=== PATIENT | male | born 1950 | race Caucasian/White ===

== ENCOUNTER 2023-03-28 14:21 | Emergency (ER) | payer OTHER ==
[~2023-03-28] VITALS: Ht 190.5 cm; Wt 103.4 kg
[~2023-03-28 14:21] MED LIST: ALBU90OI INH; ALBU90OI6 INH; ALBU90OI61 INH; ALLO300 PO; AMLO5 PO; AMOCLA875 PO; ASPI81CH PO; ATOR40TA PO; BENICAR; CARV6.25 PO; CHOL10002; COMBIVENT RESPIM4 GM; DICL75ER; DIPH50 PO; DOC250 PO; DUTASTERIDE0.5 MG PO; FENO160; FENO160 PO; FISH1000 PO; FURO40 PO; GABA400 PO; GLIM4; HYDACE10B; HYDACE5 PO; HYDR1TAB94 PO; Hair, Skin & N1 EACH PO; INSULANI; INSULANPEN; LEVFLO500 PO; LOSA50 PO; LOSHYD PO; MAGCIT300 PO; METF500 PO; METF850; METO25ER PO; METR500 PO; MONT10T PO; NOVOLOG100 UNIT/3; OLME20; OXYACE5T PO; PIOG15 PO; POTA10T PO; PRED20 PO; PROM25 PO; RANI150 PO; ROSU10TA; TAMS.4ER PO; TESTOSTERONE; TOPI50 PO; TOUJEO MAX300 UNIT/2 SC; VALACYCLOVIR1000 MG PO; VALS80
[2023-03-28 15:04] LABS: BASOPHILS ABSOLUTE AUTO 0.06 K/mm3 (0.00-0.23); BASOPHILS PERCENT AUTO 1 % (0-2); EOSINOPHILS ABSOLUTE AUTO 0.14 K/mm3 (0.00-0.68); EOSINOPHILS PERCENT AUTO 2 % (0-6); Hematocrit 44.3 % (37.0-53.0); Hemoglobin 14.5 g/dL (13.5-17.5); IMMATURE GRAN ABSOLUTE AUTO 0.02 K/mm3 (0.00-0.10); IMMATURE GRAN PERCENT AUTO 0 % (0-1); LYMPHOCYTES ABSOLUTE AUTO 0.66 K/mm3 (0.84-5.20); LYMPHOCYTES PERCENT AUTO 10 % (21-46); MONOCYTES ABSOLUTE AUTO 0.41 K/mm3 (0.16-1.47); MONOCYTES PERCENT AUTO 6 % (4-13); Mean Corpuscular HGB 28.9 pg (26.0-34.0); Mean Corpuscular HGB Conc 32.7 g/dL (31.5-36.5); Mean Corpuscular Volume 88 fL (80-100); Mean Platelet Volume 11.4 fL (9.1-12.4); NEUTROPHILS ABSOLUTE AUTO 5.42 K/mm3 (1.96-9.15); NEUTROPHILS PERCENT AUTO 81 % (41-73); Platelet Count 147 K/mm3 (150-400); RDW Coefficient Variation 14.9 % (11.7-14.2); RDW Standard Deviation 47.9 fL (35.1-46.3); Red Blood Cell Count 5.01 M/mm3 (4.30-5.90); White Blood Cell Count 6.71 K/mm3 (4.00-11.30)
[2023-03-28 15:20] LABS: Albumin, Blood 3.1 g/dL (3.4-5.0); Albumin/Globulin Ratio 0.5 (0.8-1.8); Bilirubin, Total 0.8 mg/dL (0.1-1.0); Bun/Creatinine Ratio 15.5 (12.0-20.0); Calcium, Blood 9.3 mg/dL (8.5-10.1); Globulin, Blood 6.1 g/dL (2.2-4.0); Potassium, Blood 4.3 mmol/L (3.5-5.5); Total Protein, Blood 9.2 g/dL (6.4-8.2)
[2023-03-28 18:17] VITALS: BP 139/57
[2023-03-28] MEDS ORDERED: LASIX40 MG PO (19:20)
== END 2023-03-28 19:24 | disposition left against medical advice (07) ==
LOC: ER 14:21
PROVIDERS: Physician Assistant
DX: I13.0 Hypertensive heart and chronic kidney disease with heart failure and stage 1 through stage 4 chronic kidney disease, or unspecified chronic kidney disease (principal); N18.9 Chronic kidney disease, unspecified; I50.9 Heart failure, unspecified; I25.2 Old myocardial infarction; J90 Pleural effusion, not elsewhere classified; R77.8 Other specified abnormalities of plasma proteins; E11.22 Type 2 diabetes mellitus with diabetic chronic kidney disease; Z79.899 Other long term (current) drug therapy; Z79.4 Long term (current) use of insulin; G47.33 Obstructive sleep apnea (adult) (pediatric); Z87.891 Personal history of nicotine dependence
CPT/HCPCS: 80053; 83690; 83880; 84484; 85025; 93005; 93010; 96374; 99284-25; J1940

== ENCOUNTER 2023-04-26 11:31 | Inpatient (IN) | payer OTHER ==
[~2023-04-26] VITALS: Ht 188 cm; Wt 129.7 kg
[~2023-04-26 11:31] MED LIST changes: +LASIX40 MG PO
[2023-04-26 12:05] LABS: BASOPHILS ABSOLUTE AUTO 0.04 K/mm3 (0.00-0.23); BASOPHILS PERCENT AUTO 1 % (0-2); EOSINOPHILS ABSOLUTE AUTO 0.16 K/mm3 (0.00-0.68); EOSINOPHILS PERCENT AUTO 3 % (0-6); Hematocrit 44.1 % (37.0-53.0); Hemoglobin 14.1 g/dL (13.5-17.5); IMMATURE GRAN ABSOLUTE AUTO 0.02 K/mm3 (0.00-0.10); IMMATURE GRAN PERCENT AUTO 0 % (0-1); LYMPHOCYTES ABSOLUTE AUTO 0.73 K/mm3 (0.84-5.20); LYMPHOCYTES PERCENT AUTO 14 % (21-46); MONOCYTES ABSOLUTE AUTO 0.43 K/mm3 (0.16-1.47); MONOCYTES PERCENT AUTO 9 % (4-13); Mean Corpuscular HGB 28.8 pg (26.0-34.0); Mean Corpuscular Volume 90 fL (80-100); Mean Platelet Volume 12.1 fL (9.1-12.4); NEUTROPHILS ABSOLUTE AUTO 3.68 K/mm3 (1.96-9.15); NEUTROPHILS PERCENT AUTO 73 % (41-73); Platelet Count 137 K/mm3 (150-400); RDW Coefficient Variation 14.7 % (11.7-14.2); RDW Standard Deviation 49.1 fL (35.1-46.3); Red Blood Cell Count 4.89 M/mm3 (4.30-5.90); White Blood Cell Count 5.06 K/mm3 (4.00-11.30)
[2023-04-26 12:28] LABS: Magnesium, Blood 2.4 mg/dL (1.6-2.4)
[2023-04-26 12:29] LABS: Albumin/Globulin Ratio 0.5 (0.8-1.8); Bilirubin, Total 0.7 mg/dL (0.1-1.0); Bun/Creatinine Ratio 19.4 (12.0-20.0); Calcium, Blood 9.3 mg/dL (8.5-10.1); Creatinine, Blood 2.48 mg/dL (0.60-1.20); Globulin, Blood 6.1 g/dL (2.2-4.0); Potassium, Blood 4.8 mmol/L (3.5-5.5); Total Protein, Blood 9.1 g/dL (6.4-8.2)
[2023-04-26 16:15] LABS: International Normalized Ratio 1.17; Prothrombin Time Results 12.2 Sec (9.7-11.5)
[2023-04-26 16:24] LABS: CHOL/HDL RATIO 3.8; Cholesterol 126 mg/dL (50-200); HDL Cholesterol 33 mg/dL (>39); LDL/HDL RATIO 2.3; Low Density Lipoprotein Chol 76 mg/dL (0-110); Triglycerides 83 mg/dL (30-160); Very Low Density Lipoprot Chol 16 mg/dL (6-32)
[2023-04-26 16:43] LABS: D-Dimer, Quantitative 0.66 mg/L FEU (0.00-0.52)
[2023-04-26 16:47] VITALS: BP 155/88
[2023-04-26 16:47] LABS: Anti-Xa UFH, PHA Monitoring <0.10 IU/mL
--- NOTE | 2023-04-26 18:05 | NUR ---
Admit note Pt to room via gurney, sba to bed. 1 person assist at side of bed, with urinal. A&Ox4; decreased fine motor skill to left arm. Spo2 >90% on 9l o2 via nc, ls diminished. Tele sinus 70-80's, bp elevated but stable. Heparin gtt and bolus given. Lasix given. Other vss. No other acute changes noted. Will continue to monitor.
[2023-04-26 18:19] LABS: Influenza A, PCR NEGATIVE (NEGATIVE); Influenza B, PCR NEGATIVE (NEGATIVE); Resp Syncytial Virus, PCR NEGATIVE (NEGATIVE); SARS-Cov-2 (COVID-19) PCR, MMC NEGATIVE (NEGATIVE)
[2023-04-26 19:40] VITALS: BP 137/88
[2023-04-26 20:31] VITALS: BP 150/84
[2023-04-26 23:39] VITALS: BP 133/85
[2023-04-27] VITALS (11 sets, daily range): BP systolic 125–147; BP diastolic 58–109
[2023-04-27 00:50] LABS: BASOPHILS ABSOLUTE AUTO 0.04 K/mm3 (0.00-0.23); BASOPHILS PERCENT AUTO 1 % (0-2); EOSINOPHILS ABSOLUTE AUTO 0.12 K/mm3 (0.00-0.68); EOSINOPHILS PERCENT AUTO 2 % (0-6); Hematocrit 41.1 % (37.0-53.0); Hemoglobin 13.1 g/dL (13.5-17.5); IMMATURE GRAN ABSOLUTE AUTO 0.01 K/mm3 (0.00-0.10); IMMATURE GRAN PERCENT AUTO 0 % (0-1); LYMPHOCYTES ABSOLUTE AUTO 0.79 K/mm3 (0.84-5.20); LYMPHOCYTES PERCENT AUTO 13 % (21-46); MONOCYTES ABSOLUTE AUTO 0.57 K/mm3 (0.16-1.47); MONOCYTES PERCENT AUTO 9 % (4-13); Mean Corpuscular HGB 28.7 pg (26.0-34.0); Mean Corpuscular HGB Conc 31.9 g/dL (31.5-36.5); Mean Corpuscular Volume 90 fL (80-100); Mean Platelet Volume 12.1 fL (9.1-12.4); NEUTROPHILS ABSOLUTE AUTO 4.68 K/mm3 (1.96-9.15); NEUTROPHILS PERCENT AUTO 75 % (41-73); Platelet Count 136 K/mm3 (150-400); RDW Coefficient Variation 14.4 % (11.7-14.2); Red Blood Cell Count 4.57 M/mm3 (4.30-5.90); White Blood Cell Count 6.21 K/mm3 (4.00-11.30)
[2023-04-27 01:33] LABS: Albumin, Blood 2.9 g/dL (3.4-5.0); Blood Urea Nitrogen 46 mg/dL (8-24); Bun/Creatinine Ratio 18.8 (12.0-20.0); CO2, Blood 29 mmol/L (21-32); Calcium, Blood 9.2 mg/dL (8.5-10.1); Creatinine, Blood 2.45 mg/dL (0.60-1.20); Glomerular Filtration Rate 28 (60-); Glucose, Blood 154 mg/dL (70-99)
--- NOTE | 2023-04-27 06:32 | NUR ---
SHIFT SUMMARY A/Ox4 AND COOPERATIVE WITH CARE. ANSWERS QUESTIONS APPROPRIATELY AND ABLE TO MAKE HIS NEEDS KNOWN. CONTINUES TO PRESENT WITH LEFT ARM WEAKNESS/UNCOORDINATED MOVEMENTS. BUT PT REPORTS "ITS FEELING BETTER, I FEEL LIKE I HAVE MORE CONTROL THEN I DID BEFORE". NO OTHER DEFICITS NOTED AT THIS TIME. CARDIAC, REMAINS IN SB-ST 50-80'S WITH NO REPORTS OF CP OR PRESSURE T/O THE NIGHT. SBP HAS BEEN STABLE RANGING 130-150'S. RESPIRATORY, MAINTAINS SPO2 >94% ON 5L VIA HiFLOW NC. REPORTS ORTHOPENA WELL SOME SOB NOTED WITH EXERTION. DENIES SOB WHEN AT REST. USED CPAP WITH 5L BLEED T/O MOST OF THE NIGHT. GI/, ABLE TO STAND AT BEDSIDE TO VOID INTO URINAL WITH MINIMAL ASSITANCE NEEDED FROM STAFF. ABD VERY DISTENDED, BUT PT STATES THIS IS HIS NORMAL. NO BM FOR THIS SHIFT. HEPARIN gtt IS BEING MANAGED BY PHARMACY AND HAS BEEN INFUSING T/O THE NIGHT ORDERED VIA EMAR. PT SCHEDULED FOR RIGHT THORACENTESIS THIS AM. ASSESSED PT FOR RISKS OF ANY IGNITION SOURCES WELL BEHAVIORS FOR INCREASED RISKS OF FIRE DANGER. PT EDUCATED ON COMMON SOURCES OF IGNITION WELL NEED TO KEEP A SAFE ENVIRONMENT. PT VOICED UNDERSTANDING. NO NEW ORDERS AT THIS TIME, WILL REPORT TO ONCOMING RN. SHAN ANDREWS OF THIS NOTE.
--- NOTE | 2023-04-27 09:10 | NUR ---
HEPARIN PLACED ON STANDBY PER ULTRASOUND FOR THROACENTESIS THIS AFTERNOON. PHARMACY UPDATED. DR. SON BY TO SEE PATIENT. THIS RN TO CALL IMAGING TO INQUIRE ABOUT MRI. PATIENT ALERT AND ORIENTED X4. PERRLA. NO FACIAL DROOP NOTED. SPEECH CLEAR AND INTACT. BILATERAL LOWER EXTREMITIES MOVEMENTS AND STRENGTH. WEAKNESS NOTED IN LEFT ARM/HAND, IMPROVING PER PATIENT REPORT. OBEYS COMMANDS. DENIES NUMBNESS/TINGLING. PT/OT ORDERS IN PLACE. UP TO RECLINER THIS AM. USING CANE AT BASELINE. NEEDING ONE PERSON ASSISTANCE WITH UNSTEADY GAIT. TELE SHOWING SINUS RHYTHM WITH HR 70'S. DENIES CHEST PAIN/PRESSURE/PALPITATIONS. BP STABLE. EDEMA NOTED IN BLE/FEET. HEPARIN GTT ON STANDBY. IV'S FLUSHED AND SALINE LOCKED. ON 5L AT THIS TIME SATING MID 90'S. PATIENT STATES HE FEEL SOB, PLAN FOR THROACENTESIS TO RIGHT SIDE. WEARING CPAP AT NIGHT. LUNGS SOUNDING CLEAR IN UPPER LOBES AND DIMINISHED THROUGHOUT LOWER LOBES. SOB WITH EXCERTION. BOWEL TONES PRESENT. EATING AND VOIDING WNL. REFUSED STOOL SOFTNERS THIS AM. USING URINAL TO VOID. SCATTERED SCABS THROUGHOUT BILATERAL EXTREMITIES ANF LEFT FOREHEAD. CALL LIGHT IN REACH. TALKING WITH FAMILY ON PERSONAL CELLPHONE THIS MORNING. DENIES NEEDS, UP IN RECLINER AT THIS TIME.
--- NOTE | 2023-04-27 12:27 | NUR ---
PHYSICAL THERAPY IN ROOM WORKING WITH PATIENT. SISTER AND BROTHER IN LAW IN THIS AM, UPDATED BY THIS RN.
--- NOTE | 2023-04-27 13:06 | NUR ---
DR. SHARIF BY TO SEE PATIENT. NO INTERVENTIONS AT THIS TIME. DISCUSSED NEED FOR FOLLOW UP AND PLAN FOR ANGIOGRAM AND TAVR PROCEDURE IN FUTURE. THIS RN PLACED CALL TO SISTER JERZY TO UPDATE, NO ANSWER. SCD'S IN PLACE. VITALS REMAINS STABLE.
[2023-04-27 15:44] LABS: Anion Gap 5 mmol/L (6-16); Chloride, Blood 105 mmol/L (98-108); Potassium, Blood 4.2 mmol/L (3.5-5.5); Sodium, Blood 139 mmol/L (136-145)
--- NOTE | 2023-04-27 15:46 | NUR ---
PATIENT TO THORACENTESIS
[2023-04-27 16:39] LABS: Automated BF WBC Count 0.467 K/mm3 (0-999)
[2023-04-27 16:53] LABS: pH, Body Fluid 6.1
--- NOTE | 2023-04-27 17:04 | NUR ---
SHIFT SUMMARY: PATIENT BACK FROM THORACENTESIS. VITALS SIGNS STABLE. RIGHT LOWER THORACIC SITE WNL. BANDAID C/D/I. TITRATING 02 DOWN. CURRENTLY ON ROOM AIR AT 96% SPO2. POST VITALS IN PROGRESS PATIENT REPORTS IMPROVEMENT IN BREATHING. DENIES SOB. ABLE TO TAKE DEEP BREATH WITHOUT PAIN. LUNGS SOUNDING CLEAR IN UPPER AND DIM IN BASES. TELE SHOWING SR WITH 60-70'S. BP STABLE. DENIES CHEST PAIN/PRESSURE/PALPITATIONS. EATING AND VOIDING WNL. USING CANE AND 1 PERSON TO TRANSFER. IV'S REMAIN SALINE LOCKED. CALL LIGHT IN REACH.SON AT BEDSIDE.
[2023-04-27 17:07] LABS: Glucose, Body Fluid 162 mg/dL; Lactate Dehydrogenase, Body Fl 115 U/L; Protein, Body Fluid 4.7 g/dL; Triglycerides, Body Fluid 25 mg/dL
[2023-04-27 17:13] LABS: RBC Count, Body Fluid 317 /mm3 (0-0)
[2023-04-27 17:14] LABS: Body Fluid WBC Count 467 /mm3 (0-999)
[2023-04-27 17:15] LABS: Appearance, Body Fluid Hazy (Clear); Color, Body Fluid Yellow (None-Yellow)
[2023-04-27 18:45] LABS: Total Cell Count, Body Fluid 100
[2023-04-28 04:25] LABS: BASOPHILS ABSOLUTE AUTO 0.04 K/mm3 (0.00-0.23); BASOPHILS PERCENT AUTO 1 % (0-2); EOSINOPHILS PERCENT AUTO 4 % (0-6); Hematocrit 40.6 % (37.0-53.0); Hemoglobin 13.2 g/dL (13.5-17.5); IMMATURE GRAN ABSOLUTE AUTO 0.02 K/mm3 (0.00-0.10); IMMATURE GRAN PERCENT AUTO 0 % (0-1); LYMPHOCYTES ABSOLUTE AUTO 0.81 K/mm3 (0.84-5.20); LYMPHOCYTES PERCENT AUTO 15 % (21-46); MONOCYTES PERCENT AUTO 11 % (4-13); Mean Corpuscular HGB 28.8 pg (26.0-34.0); Mean Corpuscular HGB Conc 32.5 g/dL (31.5-36.5); Mean Corpuscular Volume 89 fL (80-100); Mean Platelet Volume 11.6 fL (9.1-12.4); NEUTROPHILS ABSOLUTE AUTO 3.87 K/mm3 (1.96-9.15); NEUTROPHILS PERCENT AUTO 70 % (41-73); Platelet Count 125 K/mm3 (150-400); RDW Coefficient Variation 13.8 % (11.7-14.2); RDW Standard Deviation 44.4 fL (35.1-46.3); Red Blood Cell Count 4.58 M/mm3 (4.30-5.90); White Blood Cell Count 5.54 K/mm3 (4.00-11.30)
[2023-04-28 04:47] LABS: Bun/Creatinine Ratio 19.5 (12.0-20.0); Calcium, Blood 8.9 mg/dL (8.5-10.1); Creatinine, Blood 2.36 mg/dL (0.60-1.20); Potassium, Blood 3.8 mmol/L (3.5-5.5)
[2023-04-28 05:08] VITALS: BP 130/72
--- NOTE | 2023-04-28 05:11 | NUR ---
SHIFT SUMMARY PATIENT AOX4, SATS ABOVE 95% ON 2L O2 AND CPAP WHILE SLEEPING. L HAND AND ARM WEAKNESS SLIGHT. DENIES N/T, NO NOTICED FACIAL DROOP OR SLURRING OF SPEECH. PATIENT REPOSITIONS WELL IN BED. ABLE TO SWALLOW PILLS WHOLE WITH WATER. TELE IN PLACE SINUS ZHENG IN THE 50'S. BP STABLE. 1 SBA TO STAND AND USE URINAL AT BEDSIDE. NO ACUTE EVENTS THIS SHIFT. CALL LIGHT IN REACH WILL REPORT TO DAY RN.
[2023-04-28 07:28] VITALS: BP 139/59
--- NOTE | 2023-04-28 09:57 | NUR ---
AM NOTE: PATIENT ALERT AND ORIENTED X4. DENIES NUMBNESS/TINGLING. PERRLA. IMPROVED ROM AND FINE MOTOR SKILL WITH LEFT UPPER ARM. UP WITH ONE PERSON ASSIST WITH CANE. OVERALL IMPROVED MOBILITY COMPARED TO YESTERDAY DAY SHIFT. TELE SHOWING SB/SR WITH HR 50-70'S. DENIES CHEST PAIN/PRESSURE/PALPITATIONS. PPP. BP STABLE. EDEMA NOTED IN BLE. ON ROOM AIR - 2L NASAL CANNULA DEPENDING ON ACTIVITY. HOME O2 EVAL ORDERS IN PLACE. THORACENTESIS SITE WNL. WEARING CPAP DURING NIGHT. BOWEL TONES PRESENT. USING URINAL. EATING WNL. DENIES ANY PAIN. UP IN RECLINER FOR BREAKFAST. PLAN FOR DISCHARGE TODAY. CALL LIGHT IN REACH.
[2023-04-28] MEDS ORDERED: ASPI81CH PO (10:33)
[2023-04-28] MEDS ORDERED: Lopressor 25 mg25 MG PO (10:34)
[2023-04-28] MEDS ORDERED: CLOP75 PO (10:34)
[2023-04-28 11:42] VITALS: BP 106/65
--- NOTE | 2023-04-28 15:14 | NUR ---
DISCHARGE: NO ACUTE CHANGES, PATIENT REMAINS STABLE. OXYGEN DELIVERED. [facility] TO DROP OFF HOME O2 TANK AND WALKER. HOME HEALTH ORDERS IN PLACE. THIS RN EDUCATED SISTER AND PATIENT ON FOLLOW UP APPOINTMENTS. [facility] APPOINTMENT MADE FOR May AT 10:00, PATIENT ALREADY HAS APPOINTMENT SET WITH DR. YE ON May AND APPOINTMENT WITH DR. RODRIGUEZ ON . THIS RN DISCUSSED WHAT MEDICATIONS TO STOP, MEDICATIONS THAT ARE NEW AND MEDICATIONS THAT HAVE A FREQUENCY CHANGE. MED LIST FAXED TO [facility] IN [place]. THIS RN REVIEWED SIGNS AND SYMPTOMS OF WHEN TO RETURN TO ER. DISCUSSED THORACENTESIS SITE. PATIENT LEFT UNIT WITH ALL PERSONAL BELONGINGS, HOME 02, AND DISCHARGE PACKET VIA WHEELCHAIR. SISTER IN TO [employer] MACH[employer] MECHANIC SUPERVISOR PATIENT.
== END 2023-04-28 14:43 | disposition home or self-care (01) | DRG 64 ==
LOC: ER 11:31 → PCU 15:39
PROVIDERS: Family Medicine; Student in an Organized Health Care Education/Training Program; ADMIT Internal Medicine
PROC: 5A09357 Assistance with Respiratory Ventilation, Less than 24 Consecutive Hours, Continuous Positive Airway Pressure (ICD-10-PCS; 2023-04-26)
PROC: 0W993ZZ Drainage of Right Pleural Cavity, Percutaneous Approach (ICD-10-PCS; principal; 2023-04-27)
DX: I63.9 Cerebral infarction, unspecified (principal); I21.4 Non-ST elevation (NSTEMI) myocardial infarction; I50.31 Acute diastolic (congestive) heart failure; J96.21 Acute and chronic respiratory failure with hypoxia; G81.94 Hemiplegia, unspecified affecting left nondominant side; J90 Pleural effusion, not elsewhere classified; N18.4 Chronic kidney disease, stage 4 (severe); I13.0 Hypertensive heart and chronic kidney disease with heart failure and stage 1 through stage 4 chronic kidney disease, or unspecified chronic kidney disease; N17.9 Acute kidney failure, unspecified; I35.0 Nonrheumatic aortic (valve) stenosis; D63.1 Anemia in chronic kidney disease; D69.6 Thrombocytopenia, unspecified; E78.5 Hyperlipidemia, unspecified; N40.0 Benign prostatic hyperplasia without lower urinary tract symptoms; R94.31 Abnormal electrocardiogram [ECG] [EKG]; J44.9 Chronic obstructive pulmonary disease, unspecified; E11.22 Type 2 diabetes mellitus with diabetic chronic kidney disease; G47.33 Obstructive sleep apnea (adult) (pediatric); M54.9 Dorsalgia, unspecified; G89.29 Other chronic pain; I45.10 Unspecified right bundle-branch block; Z20.822 Contact with and (suspected) exposure to COVID-19; Z87.01 Personal history of pneumonia (recurrent); Z90.89 Acquired absence of other organs; Z99.89 Dependence on other enabling machines and devices; Z98.890 Other specified postprocedural states; Z87.891 Personal history of nicotine dependence; Z60.2 Problems related to living alone; Z79.899 Other long term (current) drug therapy; Z79.4 Long term (current) use of insulin; Z79.01 Long term (current) use of anticoagulants; Z79.51 Long term (current) use of inhaled steroids
CPT/HCPCS: 0241U; 32555; 36415; 70450; 71045; 71046; 80048; 80053; 80061; 80069; 82042; 82945; 82947; 83615; 83735; 83880; 83986; 84157; 84478; 84484; 85025; 85379; 85520; 85610; 85730; 87070; 87075; 87205; 89051; 93005; 93010; 93880; 94660; 94761; 94762; 97110; 97112; 97116; 97162; 97166; 97535; 99285-25; A9270; J1644; J1815; J1940